=== PATIENT | female | born 1985 | race American Indian/Alaskan Native ===

== ENCOUNTER 2021-04-01 16:22 | Outpatient (CLI) | payer OTHER | END 2021-04-01 17:28 | disposition home or self-care (01) | LOC: NST 16:22 | PROVIDERS: ATTEND Obstetrics & Gynecology Maternal & Fetal Medicine | DX: O24.913 Unspecified diabetes mellitus in pregnancy, third trimester (principal) ==

== ENCOUNTER 2021-04-15 11:32 | Outpatient (CLI) | payer OTHER | END 2021-04-15 13:43 | disposition home or self-care (01) | LOC: NST 11:32 | PROVIDERS: ATTEND Obstetrics & Gynecology Maternal & Fetal Medicine | DX: Z34.83 Encounter for supervision of other normal pregnancy, third trimester (principal) ==

== ENCOUNTER 2021-05-06 14:55 | Outpatient (CLI) | payer OTHER | END 2021-05-06 15:35 | disposition home or self-care (01) | LOC: NST 14:55 | PROVIDERS: ATTEND Obstetrics & Gynecology Maternal & Fetal Medicine | DX: Z34.83 Encounter for supervision of other normal pregnancy, third trimester (principal) ==

== ENCOUNTER 2021-05-10 10:00 | Inpatient (IN) | payer OTHER ==
[~2021-05-10] VITALS: Ht 167.6 cm; Wt 4.1 kg
[2021-05-13] MEDS ORDERED: FOLIC ACID0.8 MG (10:51)
[2021-05-13] MEDS ORDERED: GLYBURIDE2.5 MG PO (10:53)
== END 2021-05-16 09:57 | disposition home or self-care (01) | DRG 788 ==
LOC: LDR 05-13 10:51 → SURG-SUITE 05-13 10:51 → OB/GYN 05-15 10:00 → SURG-SUITE 05-16 09:57
PROVIDERS: ADMIT Obstetrics & Gynecology; ATTEND Obstetrics & Gynecology
PROC: 4A1HXFZ Monitoring of Products of Conception, Cardiac Rhythm, External Approach (ICD-10-PCS; 2021-05-13)
PROC: 10D00Z1 Extraction of Products of Conception, Low, Open Approach (ICD-10-PCS; principal; 2021-05-13 12:45)
DX: O60.14X0 Preterm labor third trimester with preterm delivery third trimester, not applicable or unspecified (principal); O34.211 Maternal care for low transverse scar from previous cesarean delivery; O24.425 Gestational diabetes mellitus in childbirth, controlled by oral hypoglycemic drugs; Z3A.36 36 weeks gestation of pregnancy; Z37.0 Single live birth

== ENCOUNTER 2021-05-13 09:52 | Outpatient (CLI) | payer OTHER ==
[2021-05-13] MEDS ORDERED: FOLIC ACID0.8 MG (10:51)
[2021-05-13] MEDS ORDERED: GLYBURIDE2.5 MG PO (10:53)
== END 2021-05-13 11:23 | disposition still patient (30) ==
LOC: NST 09:52
PROVIDERS: ATTEND Obstetrics & Gynecology Maternal & Fetal Medicine
DX: Z34.83 Encounter for supervision of other normal pregnancy, third trimester (principal)